=== PATIENT | male | born 2000 | race Caucasian/White ===

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

== ENCOUNTER 2018-01-27 15:07 | Emergency (ER) | payer OTHER ==
[~2018-01-27] VITALS: Ht 175.3 cm; Wt 87.6 kg
[~2018-01-27 15:07] MED LIST: ASPIRIN81 M2 PO; PRAVASTATIN SOD20 MG PO
[2018-01-27 16:34] LABS: HEMATOCRIT 36.5 % (38.0-50.0); HEMOGLOBIN 12.9 G/DL (12.5-16.6); MCH 30.6 PG (29.0-34.0); MCHC 35.3 G/DL (30.0-36.0); MCV 86.7 FL (86-99); PLATELET COUNT 190 K/uL (156-360); RBC DIS.WIDTH-CV 12.7 % (11.8-14.6); RED BLOOD COUNT 4.21 M/uL (4.00-5.50); WHITE BLOOD COUNT 9.7 K/uL (4.1-10.2)
[2018-01-27 16:37] LABS: APPEARANCE CLEAR ((CLEAR)); BILIRUBIN NEGATIVE; BLOOD NEGATIVE; COLOR YELLOW ((YELLOW)); GLUCOSE (STRIP) NEGATIVE; KETONES 20; LEUKOCYTES NEGATIVE; NITRITE NEGATIVE; PROTEIN (STRIP) NEGATIVE; SPECIFIC GRAVITY 1.019 (1.000-1.030); UCUL ADDED? NO
[2018-01-27 16:48] LABS: CHLORIDE 106 mEq/L (99-109); POTASSIUM 3.7 mEq/L (3.7-5.4); SODIUM 138 mEq/L (136-147)
[2018-01-27 16:49] LABS: GLUCOSE 79 mg/dL (70-99)
[2018-01-27 16:53] LABS: CREATININE 0.8 mg/dL (0.6-1.3); GFR ESTIMATE (CALCULATED) > 59 mL/min/ (58.99-99999)
[2018-01-27 16:54] LABS: UREA NITROGEN (BUN) 12 mg/dL (9-23)
[2018-01-27 16:56] LABS: CREATINE KINASE 109 IU/L (1-294)
[2018-01-27] MEDS ORDERED: ZITHROMAX Z-PA250 MG PO (18:00)
[2018-01-27 18:18] VITALS: BP 121/51
== END 2018-01-27 18:55 | disposition home or self-care (01) ==
LOC: EME 15:07
PROVIDERS: Emergency Medicine
DX: H66.92 Otitis media, unspecified, left ear (principal); J02.9 Acute pharyngitis, unspecified; E86.0 Dehydration; R55 Syncope and collapse; J45.909 Unspecified asthma, uncomplicated; Z86.73 Personal history of transient ischemic attack (TIA), and cerebral infarction without residual deficits; Z88.0 Allergy status to penicillin
CPT/HCPCS: 71046; 80048; 81003; 82550; 85027; 85379; 87651 90; 93005; 99281; 99285; J7030